=== PATIENT | male | born 1985 | race Hispanic/Latino ===

== ENCOUNTER 2017-07-02 01:01 | Emergency (ER) | payer SELFPAY ==
[2017-07-02 02:01] VITALS: BP 129/77
[2017-07-02] MEDS ORDERED: MOTRIN PO ONE (04:23)
[2017-07-02] MEDS ORDERED: PERCOCET 5/325 PO PRN (04:23)
--- NOTE | 2017-07-02 04:23 | Emergency Department Report ---
ED ENT HPI - General Chief complaint: Dental/Oral Stated complaint: TOOTHACHE Time Seen by Provider: 07/02/17 04:23 Source: patient Mode of arrival: Ambulatory Limitations: No Limitations - History of Present Illness Initial comments: This is a 32-year-old male who was previously unknown to this provider, presenting to the ER with a complaint of dentalgia on the right-sided molars, one, 31, 32. He endorses sensitivity to hot and cold liquids. His pain has been present for years. There is no trauma. He has not followed up with an outpatient dentist. He cites insurance issues as being prohibitive. Denies other complaints. MD complaint: tooth pain -: Gradual, week(s), month(s), year(s) Location: tooth # (1, 31, 32) Severity: moderate Quality: aching Consistency: constant Improves with: rest Worsens with: swallowing, eating Associated Symptoms: toothache. denies: fever, cough, gum swelling, pain with swallowing, sore throat, tinnitus, hearing loss, discharge from ear, rhinorrhea - Related Data Previous Rx's Medication Instructions Recorded Last Taken Type Acetaminophen [Tylenol Arthritis] 650 mg PO Q6HR PRN #30 tablet.er 07/02/17 Unknown Rx Chlorhexidine Mouthwash [Peridex] 15 ml MM BID #1 bottle 07/02/17 Unknown Rx Ibuprofen [Motrin] 600 mg PO Q8H PRN #30 tablet 07/02/17 Unknown Rx oxyCODONE [Roxicodone] 5 mg PO Q6HR PRN #15 tablet 07/02/17 Unknown Rx Allergies Allergy/AdvReac Type Severity Reaction Status Date / Time No Known Allergies Allergy Unverified 07/02/17 01:59 ED Dental HPI - General Chief complaint: Dental/Oral Stated complaint: TOOTHACHE Time Seen by Provider: 07/02/17 04:23 Source: patient Mode of arrival: Ambulatory Limitations: No Limitations - Related Data Previous Rx's Medication Instructions Recorded Last Taken Type Acetaminophen [Tylenol Arthritis] 650 mg PO Q6HR PRN #30 tablet.er 07/02/17 Unknown Rx Chlorhexidine Mouthwash [Peridex] 15 ml MM BID #1 bottle 07/02/17 Unknown Rx Ibuprofen [Motrin] 600 mg PO Q8H PRN #30 tablet 07/02/17 Unknown Rx oxyCODONE [Roxicodone] 5 mg PO Q6HR PRN #15 tablet 07/02/17 Unknown Rx Allergies Allergy/AdvReac Type Severity Reaction Status Date / Time No Known Allergies Allergy Unverified 07/02/17 01:59 ED Review of Systems ROS: Stated complaint: TOOTHACHE Other details as noted in HPI Comment: All other systems reviewed and negative ED Past Medical Hx - Past Medical History Previous Medical History?: No - Surgical History Past Surgical History?: No - Social History Smoking Status: Light Tobacco Smoker - Medications Home Medications: Home Medications Medication Instructions Recorded Confirmed Last Taken Type Acetaminophen [Tylenol Arthritis] 650 mg PO Q6HR PRN #30 tablet.er 07/02/17 Unknown Rx Chlorhexidine Mouthwash [Peridex] 15 ml MM BID #1 bottle 07/02/17 Unknown Rx Ibuprofen [Motrin] 600 mg PO Q8H PRN #30 tablet 07/02/17 Unknown Rx oxyCODONE [Roxicodone] 5 mg PO Q6HR PRN #15 tablet 07/02/17 Unknown Rx ED Physical Exam - General Limitations: No Limitations General appearance: alert, in no apparent distress - Head Head exam: Present: atraumatic, normocephalic - Eye Eye exam: Present: normal appearance, PERRL, EOMI. Absent: nystagmus - ENT ENT exam: Present: normal orophraynx, mucous membranes moist, normal external ear exam, other (patient has dental caries upper tooth #1, 30, 31, 32. There is no stridor or dysphonia. There is gingival erythema. There is no abscess. The patient is speaking full sentences. He is protecting his airway.). Absent : normal exam - Neck Neck exam: Present: normal inspection, full ROM - Respiratory Respiratory exam: Present: normal lung sounds bilaterally. Absent: respiratory distress - Cardiovascular Cardiovascular Exam: Present: normal rhythm, bradycardia, normal heart sounds. Absent: systolic murmur, diastolic murmur, rubs, gallop - GI/Abdominal GI/Abdominal exam: Present: soft, normal bowel sounds. Absent: distended, tenderness, guarding, rebound, rigid, pulsatile mass - Rectal Rectal exam: Present: deferred - Extremities Exam Extremities exam: Present: normal inspection, full ROM - Back Exam Back exam: Present: full ROM - Neurological Exam Neurological exam: Present: alert, oriented X3, normal gait, other (Extraocular movements intact. Tongue midline. No facial droop. Facial sensation intact to light touch in the V1, V2, V3 distribution bilaterally. 5 and 5 strength in 4 extremities.. Sensation is intact to light touch in 4 extremities.). Absent : motor sensory deficit - Psychiatric Psychiatric exam: Present: normal affect, normal mood - Skin Skin exam: Present: warm, dry, intact, normal color. Absent: rash ED Course Vital Signs 07/02/17 01:59 Temperature 97.7 F Pulse Rate 52 L Respiratory 18 Rate Blood Pressure 129/77 O2 Sat by Pulse 98 Oximetry ED Medical Decision Making - Lab Data Vital Signs 07/02/17 01:59 Temperature 97.7 F Pulse Rate 52 L Respiratory 18 Rate Blood Pressure 129/77 O2 Sat by Pulse 98 Oximetry - Medical Decision Making Differential diagnosis: Dentalgia, dental caries Assessment and plan: 32-year-old male with chronic dentalgia and dental caries. He is protecting his airway at this time. There is no stridor. Patient is given a handout of the low-cost dental clinics in the [facility]. His pain is treated. He will be discharged with pain medication, and chlorhexidine. Return precautions are reviewed. Critical care attestation.: If time is entered above; I have spent that time in minutes in the direct care of this critically ill patient, excluding procedure time. ED Disposition Clinical Impression: Dentalgia Disposition: - TO HOME OR SELFCARE Is pt being admited?: No Does the pt Need Aspirin: No Condition: Stable Instructions: Dental Caries (ED) Additional Instructions: Take the pain medications as directed. If taking the oxycodone, do not drive, consume alcohol, or make important decisions. Follow up with a dentist or oral surgeon as soon as possible. Return to the ER right away with fevers, chills, lethargy, irritability, projectile vomiting, change in mental status, confusion , inability to tolerate liquid feeds. Referrals: PRINCE HART MD [Primary Care Provider] - 3-5 Days [facility] [Outside] - 3-5 Days
== END 2017-07-02 05:07 | disposition home or self-care (01) ==
LOC: ED 01:01
DX: K08.89 Other specified disorders of teeth and supporting structures (principal)
CPT/HCPCS: 99282

== ENCOUNTER 2017-12-09 19:45 | Emergency (ER) | payer SELFPAY ==
[2017-12-09] MEDS ORDERED: NACL 0.9% 1000 ML 1,000 ML IV ONE (21:58)
[2017-12-09 22:18] LABS: Basophils % (Auto) 0.6 % (0.0-1.8); Eosinophils # (Auto) 0.5 K/mm3 (0.0-0.4); Eosinophils % (Auto) 6.7 % (0.0-4.3); Hematocrit 43.3 % (35.5-45.6); Hemoglobin 14.7 gm/dl (11.8-15.2); Lymphocytes # (Auto) 3.2 K/mm3 (1.2-5.4); Lymphocytes % (Auto) 39.2 % (13.4-35.0); Mean Corpuscular HGB Conc 34 % (32-34); Mean Corpuscular Hemoglobin 30 pg (28-32); Mean Corpuscular Volume 89 fl (84-94); Monocytes # (Auto) 0.7 K/mm3 (0.0-0.8); Monocytes % (Auto) 8.4 % (0.0-7.3); Platelet Count 254 K/mm3 (140-440); Red Blood Count 4.88 M/mm3 (3.65-5.03); Red Cell Distribution Width 13.1 % (13.2-15.2)
[2017-12-09 22:42] LABS: Partial Thromboplastin Time 32.9 Sec. (24.2-36.6)
[2017-12-09 23:01] LABS: Alanine Aminotransferase 9 units/L (7-56); Albumin 4.6 g/dL (3.9-5); BUN/Creatinine Ratio 11; Blood Urea Nitrogen 9 mg/dL (9-20); Calcium 9.5 mg/dL (8.4-10.2); Hemolysis Index 5; Lipase 33 units/L (13-60)
[2017-12-10] MEDS ORDERED: K-DUR PO ONE (06:17)
--- NOTE | 2017-12-10 06:27 | Emergency Department Report ---
ED General Adult HPI - General Chief complaint: GI Bleed Stated complaint: ANAL BLEEDING Time Seen by Provider: 12/10/17 06:16 Source: patient, RN notes reviewed Mode of arrival: Ambulatory Limitations: No Limitations - History of Present Illness Initial comments: This is a 32-year-old male who is not known to this provider previously, who presents to the ER with a complaint of nontraumatic pain was intermittent rectal bleeding for a few months. He reports straining and pushing to defecate. He denies hematemesis. He denies melena. The symptoms are intermittent, painless, do not radiate anywhere, and do not have relieving factors. -: Gradual, month(s) Severity scale (0 -10): 0 Consistency: intermittent Improves with: none Worsens with: none Associated Symptoms: denies other symptoms - Related Data Previous Rx's Medication Instructions Recorded Last Taken Type Acetaminophen [Tylenol Arthritis] 650 mg PO Q6HR PRN #30 tablet.er 07/02/17 Unknown Rx Chlorhexidine Mouthwash [Peridex] 15 ml MM BID #1 bottle 07/02/17 Unknown Rx Ibuprofen [Motrin] 600 mg PO Q8H PRN #30 tablet 07/02/17 Unknown Rx oxyCODONE [Roxicodone] 5 mg PO Q6HR PRN #15 tablet 07/02/17 Unknown Rx Allergies Allergy/AdvReac Type Severity Reaction Status Date / Time No Known Allergies Allergy Verified 12/09/17 21:58 ED Review of Systems ROS: Stated complaint: ANAL BLEEDING Other details as noted in HPI ED Past Medical Hx - Past Medical History Previous Medical History?: No - Surgical History Past Surgical History?: No - Social History Smoking Status: Heavy Tobacco Smoker Substance Use Type: None - Medications Home Medications: Home Medications Medication Instructions Recorded Confirmed Last Taken Type Acetaminophen [Tylenol Arthritis] 650 mg PO Q6HR PRN #30 tablet.er 07/02/17 Unknown Rx Chlorhexidine Mouthwash [Peridex] 15 ml MM BID #1 bottle 07/02/17 Unknown Rx Ibuprofen [Motrin] 600 mg PO Q8H PRN #30 tablet 07/02/17 Unknown Rx oxyCODONE [Roxicodone] 5 mg PO Q6HR PRN #15 tablet 07/02/17 Unknown Rx ED Physical Exam - General Limitations: No Limitations General appearance: alert, in no apparent distress - Head Head exam: Present: atraumatic, normocephalic - Eye Eye exam: Present: normal appearance, EOMI. Absent: nystagmus - ENT ENT exam: Present: normal exam, normal orophraynx, mucous membranes moist, normal external ear exam - Neck Neck exam: Present: normal inspection, full ROM. Absent: tenderness, meningismus - Respiratory Respiratory exam: Present: normal lung sounds bilaterally. Absent: respiratory distress, chest wall tenderness - Cardiovascular Cardiovascular Exam: Present: normal rhythm, bradycardia, normal heart sounds. Absent: tachycardia, irregular rhythm, systolic murmur, diastolic murmur, rubs, gallop - GI/Abdominal GI/Abdominal exam: Present: soft, normal bowel sounds. Absent: distended, tenderness, guarding, rebound, rigid, pulsatile mass - Rectal Rectal exam: Present: normal inspection, normal rectal tone, heme (-) stool, other (export manager by rn akbar saucedo) - Extremities Exam Extremities exam: Present: normal inspection, full ROM, normal capillary refill , pedal edema, other (2+ pulses noted in the bilateral upper, lower extremities. Compartments soft. No long bony tenderness. The pelvis is stable.). Absent: tenderness, joint swelling, calf tenderness - Back Exam Back exam: Present: normal inspection, full ROM. Absent: tenderness, CVA tenderness (R), paraspinal tenderness, vertebral tenderness - Neurological Exam Neurological exam: Present: alert, oriented X3 - Psychiatric Psychiatric exam: Present: normal affect, normal mood - Skin Skin exam: Present: warm, dry, intact, normal color. Absent: rash ED Course Vital Signs 12/09/17 12/10/17 12/10/17 21:48 02:09 05:08 Temperature 97.7 F 97.7 F 97.6 F Pulse Rate 61 80 46 L Respiratory 18 20 16 Rate Blood Pressure 153/63 132/85 Blood Pressure 125/76 [Left] O2 Sat by Pulse 98 98 99 Oximetry 12/10/17 06:44 Temperature Pulse Rate 43 L Respiratory 16 Rate Blood Pressure Blood Pressure 133/92 [Left] O2 Sat by Pulse 99 Oximetry ED Medical Decision Making - Lab Data Result diagrams: 12/09/17 22:00 12/09/17 22:00 Vital Signs 12/09/17 12/10/17 12/10/17 21:48 02:09 05:08 Temperature 97.7 F 97.7 F 97.6 F Pulse Rate 61 80 46 L Respiratory 18 20 16 Rate Blood Pressure 153/63 132/85 Blood Pressure 125/76 [Left] O2 Sat by Pulse 98 98 99 Oximetry Labs 12/09/17 12/09/17 12/09/17 22:00 22:00 22:00 WBC 8.1 RBC 4.88 Hgb 14.7 Hct 43.3 MCV 89 MCH 30 MCHC 34 RDW 13.1 L Plt Count 254 Lymph % (Auto) 39.2 H [place] % (Auto) 8.4 H Eos % (Auto) 6.7 H Baso % (Auto) 0.6 Lymph # 3.2 [place] # 0.7 Eos # 0.5 H Baso # 0.0 Seg Neutrophils % 45.1 Seg Neutrophils # 3.6 PT 13.7 INR 1.00 APTT 32.9 Sodium 144 Potassium 3.4 L Chloride 101.5 Carbon Dioxide 32 H Anion Gap 14 BUN 9 Creatinine 0.8 Estimated GFR > 60 BUN/Creatinine Ratio 11 Glucose 72 L Calcium 9.5 Total Bilirubin 1.30 H AST 15 ALT 9 Alkaline Phosphatase 66 Total Protein 7.7 Albumin 4.6 Albumin/Globulin Ratio 1.5 Lipase 33 Blood Type Antibody Screen 12/09/17 22:00 WBC RBC Hgb Hct MCV MCH MCHC RDW Plt Count Lymph % (Auto) [place] % (Auto) Eos % (Auto) Baso % (Auto) Lymph # [place] # Eos # Baso # Seg Neutrophils % Seg Neutrophils # PT INR APTT Sodium Potassium Chloride Carbon Dioxide Anion Gap BUN Creatinine Estimated GFR BUN/Creatinine Ratio Glucose Calcium Total Bilirubin AST ALT Alkaline Phosphatase Total Protein Albumin Albumin/Globulin Ratio Lipase Blood Type O POSITIVE Antibody Screen Negative - Medical Decision Making Differential diagnosis, including not limited to: Hemorrhoid, anal fissure, lower GI bleed Assessment and plan: 32-year-old male who describes resolved rectal bleeding. He is afebrile with reassuring vital signs and in no distress. There is no obvious bleeding on his rectal examination. Hemoglobin, hematocrit appropriate and within normal limits. Vital signs stable and within normal limits. There does not appear to be an objective medical emergency at this time, the patient is medically suitable for discharge with outpatient follow-up. Critical care attestation.: If time is entered above; I have spent that time in minutes in the direct care of this critically ill patient, excluding procedure time. ED Disposition Clinical Impression: History of GI bleed Disposition: DC-01 TO HOME OR SELFCARE Is pt being admited?: No Does the pt Need Aspirin: No Condition: Stable Instructions: Rectal Bleeding (ED), Anal Fissure (ED) Additional Instructions: drink 6-8 cups of water per day. Eat plenty of fruits, fibers, vegetables. Avoid Motrin, Naprosyn, ibuprofen, Aleve. For symptom relief, patient may start to use sitz bath, which is a hot tub filled with warm water, occasionally filled with salt. Patient may fill up the toe with hot water as described, and rest there but talks in it as often as as needed for symptom relief. Follow up with the primary care doctor or toll transmission worker within the next 4-6 weeks. Not following up with GI for further outpatient evaluation may resultant undiagnosed cancer, tumor, malignancy. Return to the ER right away with new pain, worsened pain, migration of pain, projectile vomiting, change in mental status, confusion, inability to tolerate liquid feeds. Referrals: [facility] [Provider Group] - 3-5 Days [facility] [Provider Group] - 3-5 Days Forms: Accompanied Note
[2017-12-10 06:45] VITALS: BP 133/92
== END 2017-12-10 06:44 | disposition home or self-care (01) ==
LOC: ED 19:45
DX: K92.2 Gastrointestinal hemorrhage, unspecified (principal); F17.200 Nicotine dependence, unspecified, uncomplicated
CPT/HCPCS: 36415; 80053; 83690; 85025; 85610; 85730; 86850; 86900; 86901; 99284